=== PATIENT | female | born 1950 | race Caucasian/White ===

== ENCOUNTER 2016-08-29 18:12 | Observation (INO) | payer BC ==
[~2016-08-29] VITALS: Ht 160 cm; Wt 154.0 kg
[~2016-08-29 18:12] MED LIST: ADVIL200 MG PO; BACLOFEN10 MG PO; CEPHALEXIN500 MG PO; CIPRO500 MG PO; CLEOCIN300 MG PO; COPAXONE20 MG/KIT SC; COPAXONE40 MG/1 ML SC; CORTIZONE-1028 GM TP; EYE DROPS ADVAN15 ML BOTH EYES; GABAPENTIN300 MG PO; HYDROCODONE BIT/ACET PO; LASIX20 MG PO; LISINOPRIL20 MG PO; TYLENOL EXTRA500 MG PO
[2016-08-29 21:49] LABS: HEMATOCRIT 40.4 % (36.0-46.0); MCH 28.1 PG (29.0-34.0); MCHC 32.2 G/DL (30.0-36.0); MCV 87.4 FL (83-99); MEAN PLAT.VOLUME 8.9 uM^3 (9.5-12.4); PLATELET COUNT 309 K/uL (156-360); RBC DIS.WIDTH-CV 13.6 % (11.8-14.6); RBC DIS.WIDTH-SD 43.3 % (39-53); RED BLOOD COUNT 4.62 M/uL (3.80-5.20); WHITE BLOOD COUNT 10.5 K/uL (4.1-10.2)
[2016-08-29 21:58] LABS: CHLORIDE 105 mEq/L (99-109); POTASSIUM 3.9 mEq/L (3.7-5.4); SODIUM 141 mEq/L (136-147)
[2016-08-29 22:00] LABS: GLUCOSE 106 mg/dL (70-99)
[2016-08-29 22:01] LABS: ANION GAP 11 MEQ/L (2-14)
[2016-08-29 22:04] LABS: GFR ESTIMATE (CALCULATED) > 59 mL/min/
[2016-08-29 22:05] LABS: UREA NITROGEN (BUN) 15 mg/dL (9-23)
[2016-08-29 22:32] LABS: ADD MIUA? YES; BILIRUBIN NEGATIVE; BLOOD NEGATIVE; COLOR YELLOW ((YELLOW)); GLUCOSE (STRIP) NEGATIVE; KETONES NEGATIVE; LEUKOCYTES NEGATIVE; NITRITE NEGATIVE; PROTEIN (STRIP) 30; SPECIFIC GRAVITY 1.027 (1.000-1.030); UROBILINOGEN 0.2 MG/DL (0.2-1.0)
[2016-08-29 22:38] LABS: BACTERIA RARE /HPF; EPITHELIAL CELLS 1+ /HPF; MUCUS TRACE /LPF; RED BLOOD CELLS 0-5 /HPF (0-5); UCUL ADDED? NO; WHITE BLOOD CELLS 0-5 /HPF (0-5)
[2016-08-29] MEDS ORDERED: BACLOFEN20 MG PO (22:55)
[2016-08-30] MEDS ORDERED: CLINDAMYCIN HC300 MG PO (00:19)
[2016-08-30 01:24] VITALS: BP 152/81
== END 2016-08-30 01:47 | disposition left against medical advice (07) ==
LOC: EME 18:12 → EDOF 22:54
PROVIDERS: Emergency Medicine
DX: I89.0 Lymphedema, not elsewhere classified (principal); G35 Multiple sclerosis; G89.29 Other chronic pain; E11.9 Type 2 diabetes mellitus without complications; I10 Essential (primary) hypertension; E66.01 Morbid (severe) obesity due to excess calories
CPT/HCPCS: 80048; 81003; 83605; 85027; 99281; 99284; G0378

== ENCOUNTER 2016-09-18 23:20 | Inpatient (IN) | payer BC ==
[~2016-09-18] VITALS: Ht 157.5 cm; Wt 145.6 kg
[~2016-09-18 23:20] MED LIST changes: +BACLOFEN20 MG PO; +CLINDAMYCIN HC300 MG PO
[2016-09-19 00:11] LABS: EOSINOPHIL (%) 1.2 % (0-5); EOSINOPHIL COUNT 0.2 K/uL (0-0.3); HEMATOCRIT 40.1 % (36.0-46.0); IMMATURE GRANULOCYTE (%) 0.6 % (0.0-0.7); IMMATURE GRANULOCYTE COUNT 0.1 K/uL; INSTRUMENT ABS NEUTROPHIL CT 10.2 K/uL; LYMPHOCYTE COUNT 1.1 K/uL (1.0-2.8); MCHC 32.2 G/DL (30.0-36.0); MEAN PLAT.VOLUME 9.7 uM^3 (9.5-12.4); MONOCYTE (%) 8.9 % (3-12); MONOCYTE COUNT 1.1 K/uL (0-0.8); NEUTROPHIL (%) 80.3 % (45-76); NEUTROPHIL COUNT 10.2 K/uL (1.8-6.4); PLATELET COUNT 291 K/uL (156-360); RBC DIS.WIDTH-CV 14.3 % (11.8-14.6); RBC DIS.WIDTH-SD 45.6 % (39-53); RED BLOOD COUNT 4.61 M/uL (3.80-5.20); WHITE BLOOD COUNT 12.7 K/uL (4.1-10.2)
[2016-09-19 00:21] LABS: INTER. NORMALIZED RATIO 1.1; PROTHROMBIN TIME 11.4 (9.2-11.2); PTT 29.5 (25-32)
[2016-09-19 00:24] LABS: CHLORIDE 102 mEq/L (99-109); POTASSIUM 3.9 mEq/L (3.7-5.4); SODIUM 138 mEq/L (136-147)
[2016-09-19 00:26] LABS: GLUCOSE 130 mg/dL (70-99)
[2016-09-19 00:27] LABS: ANION GAP 9 MEQ/L (2-14)
[2016-09-19 00:28] LABS: TOTAL BILIRUBIN 0.6 mg/dL (0.0-1.0)
[2016-09-19 00:29] LABS: ALKALINE PHOSPHATASE 84 IU/L (3-129)
[2016-09-19 00:30] LABS: GFR ESTIMATE (CALCULATED) > 59 mL/min/
[2016-09-19 00:31] LABS: UREA NITROGEN (BUN) 15 mg/dL (9-23)
[2016-09-19 00:33] LABS: LIPASE 10 U/L (1.0-51.0)
[2016-09-19] MEDS ORDERED: ONE-A-DAY ESSE1 EAC1 PO (01:27)
[2016-09-19] MEDS ORDERED: LO-DOSE ASPIRIN81 M2 PO (01:27)
[2016-09-19] MEDS ORDERED: MOVE FREE JOIN1 EACH PO (01:27)
[2016-09-19 03:41] LABS: C-REACTIVE PROTEIN 98.9 MG/L (0-10)
[2016-09-19 04:30] VITALS: BP 142/61
[2016-09-19 07:29] VITALS: BP 148/70
[2016-09-19 11:12] LABS: POINT-OF-CARE METER ID UU13113725
[2016-09-19 17:08] VITALS: BP 151/76
[2016-09-19 17:14] LABS: POINT-OF-CARE METER ID UU13113725
[2016-09-19 21:17] LABS: POINT-OF-CARE METER ID UU13113725
[2016-09-19 23:49] VITALS: BP 137/64
[2016-09-20 06:11] LABS: POINT-OF-CARE METER ID UU13113725
[2016-09-20 07:01] LABS: ALKALINE PHOSPHATASE 61 IU/L (3-129); ANION GAP 5 MEQ/L (2-14); CHLORIDE 103 MEQ/L (99-109); GFR ESTIMATE (CALCULATED) > 59 mL/min/; POTASSIUM 4.5 MEQ/L (3.7-5.4); SAMPLE HEMOLYSIS CHECK 0; SAMPLE ICTERIC CHECK 0; SAMPLE LIPEMIA CHECK 0; SODIUM 138 MEQ/L (136-147); TOTAL BILIRUBIN 0.5 MG/DL (0.0-1.0); UREA NITROGEN (BUN) 9 mg/dL (9-23)
[2016-09-20 07:03] LABS: GLUCOSE 95 mg/dL (70-99)
[2016-09-20 07:19] LABS: EOSINOPHIL (%) 1.8 % (0-5); EOSINOPHIL COUNT 0.2 K/uL (0-0.3); HEMATOCRIT 34.9 % (36.0-46.0); IMMATURE GRANULOCYTE (%) 0.7 % (0.0-0.7); IMMATURE GRANULOCYTE COUNT 0.1 K/uL; INSTRUMENT ABS NEUTROPHIL CT 7.9 K/uL; LYMPHOCYTE COUNT 1.6 K/uL (1.0-2.8); MCH 27.8 PG (29.0-34.0); MCHC 31.2 G/DL (30.0-36.0); MONOCYTE COUNT 1.1 K/uL (0-0.8); NEUTROPHIL (%) 72.7 % (45-76); NEUTROPHIL COUNT 7.9 K/uL (1.8-6.4); PLATELET COUNT 262 K/uL (156-360); RBC DIS.WIDTH-CV 14.9 % (11.8-14.6); RBC DIS.WIDTH-SD 48.2 % (39-53); RED BLOOD COUNT 3.92 M/uL (3.80-5.20); WHITE BLOOD COUNT 10.9 K/uL (4.1-10.2)
[2016-09-20 08:35] VITALS: BP 119/53
[2016-09-20 09:14] LABS: Estimated Average Glucose 151 mg/dL (70-123); HEMOGLOBIN A1c (GLYCOHEMOGLOB) 6.9 % HGB (Below 5.7)
[2016-09-20 12:01] VITALS: BP 122/57
[2016-09-20 12:09] LABS: POINT-OF-CARE METER ID UU13113725
[2016-09-20 16:00] VITALS: BP 144/90
[2016-09-20 23:01] VITALS: BP 124/62
[2016-09-21 06:26] LABS: EOSINOPHIL (%) 1.6 % (0-5); EOSINOPHIL COUNT 0.2 K/uL (0-0.3); HEMATOCRIT 33.2 % (36.0-46.0); IMMATURE GRANULOCYTE (%) 0.8 % (0.0-0.7); IMMATURE GRANULOCYTE COUNT 0.1 K/uL; LYMPHOCYTE COUNT 1.6 K/uL (1.0-2.8); MCH 27.8 PG (29.0-34.0); MCHC 31.6 G/DL (30.0-36.0); MCV 87.8 FL (83-99); MEAN PLAT.VOLUME 9.6 uM^3 (9.5-12.4); MONOCYTE (%) 8.2 % (3-12); NEUTROPHIL (%) 76.1 % (45-76); PLATELET COUNT 240 K/uL (156-360); RBC DIS.WIDTH-CV 14.8 % (11.8-14.6); RBC DIS.WIDTH-SD 47.9 % (39-53); RED BLOOD COUNT 3.78 M/uL (3.80-5.20); WHITE BLOOD COUNT 11.8 K/uL (4.1-10.2)
[2016-09-21 07:14] LABS: ALKALINE PHOSPHATASE 61 IU/L (3-129); ANION GAP 6 MEQ/L (2-14); CHLORIDE 102 MEQ/L (99-109); GFR ESTIMATE (CALCULATED) > 59 mL/min/; GLUCOSE 105 mg/dL (70-99); POTASSIUM 4.3 MEQ/L (3.7-5.4); SAMPLE HEMOLYSIS CHECK 0; SAMPLE ICTERIC CHECK 0; SAMPLE LIPEMIA CHECK 0; SODIUM 137 MEQ/L (136-147); TOTAL BILIRUBIN 0.4 MG/DL (0.0-1.0); UREA NITROGEN (BUN) 10 mg/dL (9-23)
[2016-09-21 07:17] VITALS: BP 144/67
[2016-09-21 11:57] LABS: ADD MIUA? YES; BILIRUBIN NEGATIVE; BLOOD LARGE; COLOR YELLOW ((YELLOW)); GLUCOSE (STRIP) NEGATIVE; KETONES NEGATIVE; LEUKOCYTES LARGE; NITRITE POSITIVE; PROTEIN (STRIP) NEGATIVE; SPECIFIC GRAVITY 1.008 (1.000-1.030); UROBILINOGEN 0.2 MG/DL (0.2-1.0)
[2016-09-21 12:01] LABS: MUCUS NONE SEEN /LPF
[2016-09-21 12:37] LABS: WHITE BLOOD CELLS 40-50 /HPF (0-5)
[2016-09-21 12:38] LABS: BACTERIA 3+ /HPF; EPITHELIAL CELLS RARE /HPF; UCUL ADDED? YES
[2016-09-21 12:41] LABS: RED BLOOD CELLS TNTC /HPF (0-5)
[2016-09-21 15:11] VITALS: BP 136/63
[2016-09-21 21:01] LABS: POINT-OF-CARE METER ID UU13113725
[2016-09-21 22:22] VITALS: BP 140/79
[2016-09-22 05:50] LABS: POINT-OF-CARE METER ID UU13113725; POINT-OF-CARE USER ID 611181321
[2016-09-22 06:22] LABS: EOSINOPHIL (%) 2.7 % (0-5); EOSINOPHIL COUNT 0.3 K/uL (0-0.3); IMMATURE GRANULOCYTE (%) 0.7 % (0.0-0.7); IMMATURE GRANULOCYTE COUNT 0.1 K/uL; INSTRUMENT ABS NEUTROPHIL CT 9.3 K/uL; LYMPHOCYTE COUNT 1.5 K/uL (1.0-2.8); MCH 28.1 PG (29.0-34.0); MCHC 31.8 G/DL (30.0-36.0); MCV 88.5 FL (83-99); MEAN PLAT.VOLUME 9.4 uM^3 (9.5-12.4); MONOCYTE (%) 7.2 % (3-12); MONOCYTE COUNT 0.9 K/uL (0-0.8); NEUTROPHIL COUNT 9.3 K/uL (1.8-6.4); PLATELET COUNT 238 K/uL (156-360); RBC DIS.WIDTH-CV 14.8 % (11.8-14.6); RBC DIS.WIDTH-SD 47.8 % (39-53); RED BLOOD COUNT 3.84 M/uL (3.80-5.20)
[2016-09-22 06:43] VITALS: BP 147/69
[2016-09-22 06:47] LABS: ALKALINE PHOSPHATASE 69 IU/L (3-129); ANION GAP 7 MEQ/L (2-14); CHLORIDE 104 MEQ/L (99-109); GFR ESTIMATE (CALCULATED) > 59 mL/min/; GLUCOSE 110 mg/dL (70-99); POTASSIUM 4.3 MEQ/L (3.7-5.4); SAMPLE HEMOLYSIS CHECK 0; SAMPLE ICTERIC CHECK 0; SAMPLE LIPEMIA CHECK 0; SODIUM 140 MEQ/L (136-147); TOTAL BILIRUBIN 0.4 MG/DL (0.0-1.0); UREA NITROGEN (BUN) 10 mg/dL (9-23)
[2016-09-22 15:09] VITALS: BP 133/58
[2016-09-23 00:02] VITALS: BP 109/52
[2016-09-23 05:57] LABS: POINT-OF-CARE METER ID UU13113725
[2016-09-23 07:07] VITALS: BP 119/87
[2016-09-23] MEDS ORDERED: KETOCONAZOLE60 GM TP (11:37)
[2016-09-23 11:56] LABS: POINT-OF-CARE METER ID UU13113725
[2016-09-23 17:00] LABS: POINT-OF-CARE METER ID UU13113725
[2016-09-23 17:59] VITALS: BP 136/63
[2016-09-24 06:02] LABS: POINT-OF-CARE METER ID UU13113725
[2016-09-24 07:42] VITALS: BP 141/67
[2016-09-24 15:40] VITALS: BP 149/83
[2016-09-25 00:01] VITALS: BP 133/69
[2016-09-25 07:07] VITALS: BP 133/70
== END 2016-09-25 15:17 | DRG 602 ==
LOC: EME 23:20 → 5EAST 09-19 02:11 → EDOF 09-19 02:11 → 5EAST 09-19 03:33
PROVIDERS: Emergency Medicine; Hospitalist; Internal Medicine
DX: L03.116 Cellulitis of left lower limb (principal); L89.623 Pressure ulcer of left heel, stage 3; L89.153 Pressure ulcer of sacral region, stage 3; N39.0 Urinary tract infection, site not specified; I83.208 Varicose veins of unspecified lower extremity with both ulcer of other part of lower extremity and inflammation; L97.111 Non-pressure chronic ulcer of right thigh limited to breakdown of skin; L97.329 Non-pressure chronic ulcer of left ankle with unspecified severity; Z68.43 Body mass index [BMI] 50.0-59.9, adult; E11.9 Type 2 diabetes mellitus without complications; L89.610 Pressure ulcer of right heel, unstageable; L89.220 Pressure ulcer of left hip, unstageable; D23.71 Other benign neoplasm of skin of right lower limb, including hip; D23.72 Other benign neoplasm of skin of left lower limb, including hip; K86.9 Disease of pancreas, unspecified; R31.9 Hematuria, unspecified; G35 Multiple sclerosis; E66.01 Morbid (severe) obesity due to excess calories; R26.2 Difficulty in walking, not elsewhere classified; Z74.01 Bed confinement status; L30.4 Erythema intertrigo; I10 Essential (primary) hypertension; I89.0 Lymphedema, not elsewhere classified; B37.9 Candidiasis, unspecified
CPT/HCPCS: 71010; 73030; 74177; 80053; 81003; 82948; 83036; 83605; 83690; 83735; 83880; 85025; 85610; 85651; 85730; 86140; 87040; 87070; 87075; 87076; 87077; 87086; 87147; 87185; 87186; 87205; 94010; 97530 GP; 99202; 99281; 99285; J0690; J1644; J1815; J3370; J7030

== ENCOUNTER 2016-09-26 01:58 | Inpatient (IN) | payer BC ==
[~2016-09-26] VITALS: Ht 157.5 cm; Wt 140.0 kg
[~2016-09-26 01:58] MED LIST changes: +KETOCONAZOLE60 GM TP; +LO-DOSE ASPIRIN81 M2 PO; +MOVE FREE JOIN1 EACH PO; +ONE-A-DAY ESSE1 EAC1 PO
[2016-09-26 03:52] LABS: BASOPHIL COUNT 0.1 K/uL (0-0.1); EOSINOPHIL (%) 1.4 % (0-5); EOSINOPHIL COUNT 0.2 K/uL (0-0.3); HEMATOCRIT 33.8 % (36.0-46.0); IMMATURE GRANULOCYTE (%) 0.5 % (0.0-0.7); IMMATURE GRANULOCYTE COUNT 0.1 K/uL; INSTRUMENT ABS NEUTROPHIL CT 8.6 K/uL; LYMPHOCYTE COUNT 1.3 K/uL (1.0-2.8); MCH 28.9 PG (29.0-34.0); MCHC 32.5 G/DL (30.0-36.0); MCV 88.7 FL (83-99); MEAN PLAT.VOLUME 9.1 uM^3 (9.5-12.4); MONOCYTE (%) 7.6 % (3-12); MONOCYTE COUNT 0.8 K/uL (0-0.8); NEUTROPHIL (%) 78.5 % (45-76); NEUTROPHIL COUNT 8.6 K/uL (1.8-6.4); PLATELET COUNT 256 K/uL (156-360); RBC DIS.WIDTH-CV 14.5 % (11.8-14.6); RBC DIS.WIDTH-SD 47.1 % (39-53); RED BLOOD COUNT 3.81 M/uL (3.80-5.20)
[2016-09-26 04:01] LABS: INTER. NORMALIZED RATIO 1.1; PROTHROMBIN TIME 11.4 (9.2-11.2); PTT 29.7 (25-32)
[2016-09-26 04:04] LABS: CHLORIDE 103 mEq/L (99-109); POTASSIUM 4.2 mEq/L (3.7-5.4); SODIUM 139 mEq/L (136-147)
[2016-09-26 04:05] LABS: GLUCOSE 123 mg/dL (70-99)
[2016-09-26 04:07] LABS: ANION GAP 9 MEQ/L (2-14)
[2016-09-26 04:09] LABS: GFR ESTIMATE (CALCULATED) > 59 mL/min/
[2016-09-26 04:10] LABS: UREA NITROGEN (BUN) 12 mg/dL (9-23)
[2016-09-26 08:27] VITALS: BP 107/62
[2016-09-26 11:47] VITALS: BP 130/69
[2016-09-26 12:51] LABS: HEMATOCRIT 30.7 % (36.0-46.0); MCV 88.5 FL (83-99)
[2016-09-26 16:30] VITALS: BP 128/66
[2016-09-26 19:03] LABS: HEMATOCRIT 28.5 % (36.0-46.0); MCV 89.3 FL (83-99)
[2016-09-26 19:49] VITALS: BP 111/65
[2016-09-27] VITALS (7 sets, daily range): BP systolic 108–129; BP diastolic 55–83
[2016-09-27 07:04] LABS: BASOPHIL COUNT 0.1 K/uL (0-0.1); EOSINOPHIL (%) 3.9 % (0-5); EOSINOPHIL COUNT 0.3 K/uL (0-0.3); HEMATOCRIT 29.8 % (36.0-46.0); IMMATURE GRANULOCYTE (%) 1.6 % (0.0-0.7); IMMATURE GRANULOCYTE COUNT 0.1 K/uL; INSTRUMENT ABS NEUTROPHIL CT 5.9 K/uL; LYMPHOCYTE COUNT 1.5 K/uL (1.0-2.8); MCH 28.3 PG (29.0-34.0); MCHC 31.5 G/DL (30.0-36.0); MCV 89.8 FL (83-99); MEAN PLAT.VOLUME 9.3 uM^3 (9.5-12.4); MONOCYTE (%) 10.5 % (3-12); MONOCYTE COUNT 0.9 K/uL (0-0.8); NEUTROPHIL (%) 66.6 % (45-76); NEUTROPHIL COUNT 5.9 K/uL (1.8-6.4); PLATELET COUNT 249 K/uL (156-360); RBC DIS.WIDTH-CV 14.6 % (11.8-14.6); RBC DIS.WIDTH-SD 47.2 % (39-53); RED BLOOD COUNT 3.32 M/uL (3.80-5.20); WHITE BLOOD COUNT 8.8 K/uL (4.1-10.2)
[2016-09-27 07:27] LABS: ALKALINE PHOSPHATASE 60 IU/L (3-129); ANION GAP 9 MEQ/L (2-14); CHLORIDE 101 MEQ/L (99-109); GFR ESTIMATE (CALCULATED) > 59 mL/min/; GLUCOSE 115 mg/dL (70-99); POTASSIUM 4.3 MEQ/L (3.7-5.4); SAMPLE HEMOLYSIS CHECK 0; SAMPLE ICTERIC CHECK 0; SAMPLE LIPEMIA CHECK 0; SODIUM 139 MEQ/L (136-147); UREA NITROGEN (BUN) 13 mg/dL (9-23)
[2016-09-27 07:28] LABS: TOTAL BILIRUBIN 0.3 MG/DL (0.0-1.0)
[2016-09-27 12:45] LABS: MCV 90.1 FL (83-99)
[2016-09-27 13:17] LABS: C DIFF TOXIN POSITIVE (NEGATIVE)
[2016-09-27 13:24] LABS: PROBE CHECK PASS
[2016-09-28 07:34] VITALS: BP 120/79
[2016-09-28 09:49] LABS: HEMATOCRIT 26.9 % (36.0-46.0); MCH 28.7 PG (29.0-34.0); MCV 89.7 FL (83-99); MEAN PLAT.VOLUME 9.2 uM^3 (9.5-12.4); PLATELET COUNT 238 K/uL (156-360); RBC DIS.WIDTH-CV 14.8 % (11.8-14.6); RBC DIS.WIDTH-SD 48.1 % (39-53); WHITE BLOOD COUNT 9.3 K/uL (4.1-10.2)
[2016-09-28 10:16] LABS: ANION GAP 7 MEQ/L (2-14); CHLORIDE 102 MEQ/L (99-109); GFR ESTIMATE (CALCULATED) > 59 mL/min/; POTASSIUM 3.8 MEQ/L (3.7-5.4); SAMPLE HEMOLYSIS CHECK 0; SAMPLE ICTERIC CHECK 0; SAMPLE LIPEMIA CHECK 0; SODIUM 137 MEQ/L (136-147); UREA NITROGEN (BUN) 13 mg/dL (9-23)
[2016-09-28 10:25] LABS: GLUCOSE 186 mg/dL (70-99)
[2016-09-28 11:08] VITALS: BP 128/83
[2016-09-28 14:28] VITALS: BP 130/85
[2016-09-28 15:52] LABS: HEMATOCRIT 27.9 % (36.0-46.0); MCV 90.3 FL (83-99)
[2016-09-28 20:00] VITALS: BP 134/65
[2016-09-28 21:49] LABS: HEMATOCRIT 28.2 % (36.0-46.0); MCV 90.4 FL (83-99)
[2016-09-29] VITALS: BP 118/61
[2016-09-29 03:44] VITALS: BP 111/67
[2016-09-29 04:47] LABS: HEMATOCRIT 27.6 % (36.0-46.0); MCV 90.2 FL (83-99)
[2016-09-29 10:00] LABS: HEMATOCRIT 27.3 % (36.0-46.0); MCV 90.1 FL (83-99)
[2016-09-29 11:08] VITALS: BP 139/72
[2016-09-29 18:18] LABS: ADD MIUA? YES; BILIRUBIN NEGATIVE; BLOOD NEGATIVE; COLOR AMBER ((YELLOW)); GLUCOSE (STRIP) NEGATIVE; KETONES NEGATIVE; LEUKOCYTES SMALL; NITRITE NEGATIVE; PROTEIN (STRIP) NEGATIVE; SPECIFIC GRAVITY 1.023 (1.000-1.030); UROBILINOGEN 0.2 MG/DL (0.2-1.0)
[2016-09-29 19:39] LABS: BACTERIA NONE SEEN /HPF; CALCIUM OXALATE CRYSTALS 1+ /HPF; EPITHELIAL CELLS RARE /HPF; MUCUS 4+ /LPF; RED BLOOD CELLS 0-5 /HPF (0-5); UCUL ADDED? NO; WHITE BLOOD CELLS 0-5 /HPF (0-5)
[2016-09-29 20:00] VITALS: BP 106/61
[2016-09-30] VITALS: BP 142/67
[2016-09-30 04:00] VITALS: BP 121/74
[2016-09-30 07:30] VITALS: BP 137/71
[2016-09-30 15:59] VITALS: BP 122/60
[2016-10-01] VITALS: BP 157/76
[2016-10-01 07:56] VITALS: BP 136/74
[2016-10-01] MEDS ORDERED: MUPIROCIN15 GM TP (12:35)
[2016-10-01] MEDS ORDERED: ZINC OXIDE56.7 GM TP (12:35)
[2016-10-01] MEDS ORDERED: METRONIDAZOLE500 MG PO (12:35)
== END 2016-10-01 15:54 | DRG 378 ==
LOC: EME 01:58 → EDOF 05:42 → 5SOUTH 06:06 → EDOF 06:06 → 5SOUTH 07:42
PROVIDERS: Emergency Medicine; Hospitalist; Physician Assistant Medical
DX: K62.5 Hemorrhage of anus and rectum (principal); D50.0 Iron deficiency anemia secondary to blood loss (chronic); A04.7 Enterocolitis due to Clostridium difficile; L89.152 Pressure ulcer of sacral region, stage 2; L89.322 Pressure ulcer of left buttock, stage 2; L89.620 Pressure ulcer of left heel, unstageable; K56.41 Fecal impaction; G35 Multiple sclerosis; I10 Essential (primary) hypertension; E78.5 Hyperlipidemia, unspecified; E11.9 Type 2 diabetes mellitus without complications; I89.0 Lymphedema, not elsewhere classified; I87.2 Venous insufficiency (chronic) (peripheral); E66.01 Morbid (severe) obesity due to excess calories; K62.89 Other specified diseases of anus and rectum; K52.9 Noninfective gastroenteritis and colitis, unspecified; B35.4 Tinea corporis; L30.4 Erythema intertrigo; B37.2 Candidiasis of skin and nail; K86.9 Disease of pancreas, unspecified; K57.90 Diverticulosis of intestine, part unspecified, without perforation or abscess without bleeding; Z66 Do not resuscitate; Z68.43 Body mass index [BMI] 50.0-59.9, adult; Z79.82 Long term (current) use of aspirin
CPT/HCPCS: 71010; 74177; 80048; 80053; 81003; 82948; 85014; 85018; 85025; 85027; 85610; 85730; 86850; 86900; 86901; 87493; 93005; J0744; J2270; J7030; S0030

== ENCOUNTER 2017-05-29 14:15 | Emergency (ER) | payer BC, OTHER ==
[~2017-05-29] VITALS: Ht 157.5 cm; Wt 100.2 kg
[~2017-05-29 14:15] MED LIST changes: +METRONIDAZOLE500 MG PO; +MUPIROCIN15 GM TP; +ZINC OXIDE56.7 GM TP
[2017-05-29 14:55] LABS: EOSINOPHIL (%) 0.8 % (0-5); EOSINOPHIL COUNT 0.1 K/uL (0-0.3); IMMATURE GRANULOCYTE (%) 0.3 % (0.0-0.7); INSTRUMENT ABS NEUTROPHIL CT 6.1 K/uL; LYMPHOCYTE COUNT 1.8 K/uL (1.0-2.8); MCV 88.1 FL (83-99); MEAN PLAT.VOLUME 9.5 uM^3 (9.5-12.4); MONOCYTE (%) 7.3 % (3-12); MONOCYTE COUNT 0.6 K/uL (0-0.8); NEUTROPHIL (%) 70.6 % (45-76); NEUTROPHIL COUNT 6.1 K/uL (1.8-6.4); PLATELET COUNT 262 K/uL (156-360); RBC DIS.WIDTH-CV 13.2 % (11.8-14.6); RBC DIS.WIDTH-SD 42.8 % (39-53); RED BLOOD COUNT 4.54 M/uL (3.80-5.20); WHITE BLOOD COUNT 8.6 K/uL (4.1-10.2)
[2017-05-29 15:06] LABS: CHLORIDE 108 mEq/L (99-109); POTASSIUM 3.6 mEq/L (3.7-5.4); SODIUM 142 mEq/L (136-147)
[2017-05-29 15:08] LABS: GLUCOSE 108 mg/dL (70-99)
[2017-05-29 15:10] LABS: ANION GAP 12 MEQ/L (2-14); TOTAL BILIRUBIN 0.7 mg/dL (0.0-1.0)
[2017-05-29 15:12] LABS: ALKALINE PHOSPHATASE 84 IU/L (3-129); GFR ESTIMATE (CALCULATED) > 59 mL/min/
[2017-05-29 15:13] LABS: UREA NITROGEN (BUN) 16 mg/dL (9-23)
[2017-05-29] MEDS ORDERED: SECURA PROTECTI78 GM TP (15:21)
[2017-05-29 18:43] VITALS: BP 143/61
== END 2017-05-29 18:44 | disposition home or self-care (01) ==
LOC: EME 14:15
PROVIDERS: Emergency Medicine
DX: L89.151 Pressure ulcer of sacral region, stage 1 (principal); R45.1 Restlessness and agitation; G35 Multiple sclerosis; Z79.82 Long term (current) use of aspirin
CPT/HCPCS: 72192; 80053; 85025